=== PATIENT | male | born 1980 | race Caucasian/White ===

== ENCOUNTER 2025-03-25 03:12 | Emergency (ER) | payer BC, SELFPAY ==
[2025-03-25 03:13] VITALS: BP 152/95
[2025-03-25 04:26] VITALS: BP 137/96
[2025-03-25 04:27] VITALS: BMI 28.5
--- NOTE | 2025-03-25 05:31 | ED.MUSCINJ ---
HPI-Injury
General
Chief Complaint: Musculo-Skeletal Complaint
Source: patient
Exam Limitations: none
Time Seen by Provider: 03/25/25 03:42
Nursing documentation reviewed up to this point in time: agreed with
History of Present Illness-Injury
Initial Injury comments:
Note:
CHIEF COMPLAINT(S)
Hip pain, predominantly described as quad and thigh pain.
HISTORY OF PRESENT ILLNESS
The patient, a 44-year-old male, presents with pain in the right hip region, which he describes primarily as affecting the quad and thigh. He reports that the pain was previously assessed at another facility, [facility], where he received a CT scan
that showed no abnormalities. He has been experiencing this discomfort for an unspecified duration but sought our opinion after multiple visits to [facility] did not resolve his symptoms. He received a steroid pack and muscle relaxants, the names of
which are unknown, and was advised to alternate their use. He initially used oxycodone but discontinued due to concerns about its potential effects. In addition, he was administered ibuprofen and acetaminophen.
The patient also mentions elevated liver enzymes and an abnormal complete blood count with elevated white blood cells at [facility]. The cause of the thigh and quad pain remains undiagnosed; thus, the patient is being sent for an ultrasound to rule
out deep vein thrombosis (DVT). The possibility of referral to orthopedics for further assessment and pain management interventions, such as injections, was discussed should the ultrasound be inconclusive.
PAST MEDICAL AND SURIGICAL HISTORY
The patient has a history of lower back pain.
EXTERNAL RECORDS REVIEWED
According to the patient, previous visits to [facility] included a CT scan that was normal. Blood tests indicated elevated liver enzymes and abnormal white blood cell counts.
PHYSICAL EXAM
General: Alert, no acute distress.
Skin: Warm, dry. No rash
Head: Normocephalic, atraumatic.
Neck: Supple, trachea midline.
Eyes, Ears, Nose, Mouth, and Throat: Oral mucosa moist.
Cardiovascular: Normal peripheral perfusion, No edema.
Respiratory: Respirations are non-labored.
Gastrointestinal: Abdomen nondistended.
Back: Normal range of motion, Normal alignment.
Musculoskeletal: Normal ROM, normal strength. Normal hip rolling. Negative Homans' sign
Neurological: Alert and oriented to person, place, time, and situation, No focal neurological deficit observed.
Psychiatric: Cooperative, appropriate mood & affect.
PLAN
1. Conduct an ultrasound to rule out deep vein thrombosis (DVT), especially due to the site and nature of the pain.
2. Continue with current medications, including the completion of the steroid pack and the administered anti-inflammatory after the steroid course.
3. Referral to orthopedics for further evaluation and management including potential injections for pain management if the ultrasound is normal and symptoms persist.
4. The patient is advised to bring all records from [facility], including imaging and lab work, to future appointments.
DIFFERENTIAL DIAGNOSIS
The Differential Diagnosis includes, in no particular order and is not limited to:
1. Deep vein thrombosis (DVT) negative ultrasound
2. Muscle strain
3. Orthopedic hip pathology
4. Nerve impingement
5. Osteoarthritis
6. Bursitis
7. Tendinitis
8. Fibromyalgia
9. Infection (e.g., osteomyelitis or soft tissue infection)
10. Referred pain from lumbar pathologies
Disposition:
SUMMARY OF ENCOUNTER
A 44-year-old male presented with left upper leg pain that began several days ago. The patient had been seen at urgent care and a local emergency department four times for the same issue. Previously, at another facility, a CT scan was performed,
which was normal. An ultrasound was conducted here, and the patient mentioned having blood work during his last emergency visit, which was reported as negative. The etiology of the pain remains unclear.
ASSESSMENT
The patients left leg pain is persistent with previous negative imaging results.
PLAN
The patient has been advised to follow up with orthopedic surgery for further evaluation and management of his leg pain.
MEDICAL DECISION MAKING
-Complexity of Data Reviewed: DDx includes deep vein thrombosis (DVT), muscle strain, orthopedic hip pathology, nerve impingement, osteoarthritis, bursitis, tendinitis, fibromyalgia, infection (e.g., osteomyelitis or soft tissue infection), and
referred pain from lumbar pathologies.
-Data:
Category 1:
External records reviewed indicated normal CT scans and prior blood work.
-Data:
Category 2:
My independent review of the ultrasound at this visit was conducted. The results were in accordance with patients statement but the details are unspecified in this record.
DIAGNOSIS
M79.602 - Left leg pain, unspecified.
Phy Exam
Physical Exam
Physical Exam:
.
Injury Course
Orders/Labs/Results
Orders:
Orders
03/25/25 04:02
US Legs, Left [US Periph Venous LOWER Ext LT] Urgent
Comment:
Reason For Exam: pain
03/25/25 05:48
Ketorolac [Toradol] 30 mg IM NOW STA
*Pulse Oximetry
SaO2: 97
Oxygen Mode of Delivery: Room air
Patient hypoxic: no
*Critical Care Note
Total Time (30-74mins, 75-104mins- exclusive of procedures): Not Applicable
Update Note
Update Note:
NAME: PETER BOO
DATE OF EXAM: 03/25/2025
Patient No: [id number]
Physician: SHRUTHI^Keyanna
Date of : 1980
Past Medical History (entered by Technologist):
Reason For Exam (entered by Technologist):
Other Notes (entered by Technologist):
Additional Information (per [facility]):
US LLE venous duplex
IMPRESSION:
No DVT in the left lower extremity.
Finalized at 5:10 AM EST
ED Attending Note
-
Portions of this chart may have been created with voice recognition software.� Occasional wrong word or��sound alike� substitutions may have occurred due to the inherent limitations of voice recognition software.
Discharge Plan
Departure
Patient Disposition: Home (Routine Discharge)
Date of Disposition: 03/25/25
Time of Disposition: 05:33
Patient with high blood pressure during this ER visit?: Yes
Condition: Fair
Discharge Problem:
Left leg pain
Instructions: Muscle and Bone Pain (DC)
Referrals:
Lee Hinton MD [Active, Orthopedics]
Jeramie Ortiz MD [Family Provider, Internal Medicine]
Activity Restrictions/Additional Instructions:
Thank You for choosing [facility].
It was a pleasure meeting you and taking part in your care. We hope for your continued healing and wellness.
Please read discharge instructions in their entirety. However, they are for general education and may not describe your exact diagnosis at discharge. Information on your ER visit and medical conditions were discussed with you along with appropriate
follow up information...
If indicated, please take your medications as instructed and indicated on discharge paperwork.
Please schedule a follow up appointment as directed. Call to schedule an appointment
Please return to the emergency department with ANY change in, persisting, or worsening of symptoms. If any of your symptoms do not improve, or persist, or become more severe within 6-12 hours, please return to the emergency department for further
care.
Please return to the emergency department if you develop a headache, neck pain/stiffness, fever greater than 100.4F, chest pain, shortness of breath, persistent nausea, vomiting, slurred speech, difficulty walking, numbness/tingling, weakness, signs
of infection or any other symptoms that are worrisome to you.
If you have any questions or concerns please do not hesitate to call the Hospital at or E-mail me directly at [email or web address]
Interventions
Interventions:
*Risk Screen - Suicide Last Done: 03/25/25 03:13
*General Assessment Last Done: 03/25/25 03:13
*Neglect/Abuse Screening Last Done: 03/25/25 03:13
*ED- Fall Risk Assessment Last Done: 03/25/25 05:55
*ED COVID-19 Vaccine History Last Done: 03/25/25 05:55
*Nursing Disposition Last Done: 03/25/25 05:55
ED-Musculoskeletal Assessment Last Done: 03/25/25 03:56
Discharge Date and Time
Discharge Date/Time: 03/25/25 05:55
Print Language: [facility]
[2025-03-25] MEDS: TORADOL 30 MG IM (05:52)
== END 2025-03-25 05:55 | disposition home or self-care (01) ==
LOC: EMR 03:12
PROVIDERS: EMERGENCY PHYSICIAN Student in an Organized Health Care Education/Training Program; FAMILY PHYSICIAN Internal Medicine
DX: M79.605 Pain in left leg (principal)
CPT/HCPCS: 99284; 96372; 93971